=== PATIENT | female | born 1980 | race Caucasian/White ===

== ENCOUNTER 2018-05-29 00:16 | Inpatient (IN) | payer BC ==
[~2018-05-29] VITALS: Ht 154.9 cm; Wt 45.4 kg
[2018-05-29] VITALS (8 sets, daily range): BP systolic 103–125; BP diastolic 60–78
[2018-05-29] MEDS ORDERED: Isovue-300 100ml vial INJ PRN (00:45)
[2018-05-29] MEDS ORDERED: Morphine Sulfate 4mg/ml Inj (IV USE ONLY) IVP ONE (00:45)
--- NOTE | 2018-05-29 00:47 | Emergency Room Report ---
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 And recommended CT imaging with IV contrast Patient reports that she last took her medicine 2 hours ago and has been doing well since then Denies any vomiting or diarrhea Denies any chest pain or shortness of breath She has passed gas however denies any bowel movement Allergies: Coded Allergies: SULFA (SULFONAMIDE ANTIBIOTICS) (Verified Allergy, Unknown, 05/29/18) Patient History Past Medical History: see triage record Pertinent Family History: none Last Menstrual Period: 2 weeks ago Reviewed Nursing Documentation: PMH: Agreed; PSxH: Agreed Review of Systems All Other Systems: negative except mentioned in HPI Physical Exam Vital Signs Date Time Temp Pulse Resp B/P (MAP) Pulse Ox O2 Delivery O2 Flow Rate FiO2 05/29/18 00:23 98.5 64 18 116/71 98 Room Air 98.4 Sp02 EP Interpretation: reviewed, normal General Appearance: well appearing Head: normocephalic, atraumatic Eyes: bilateral eye PERRL, bilateral eye EOMI ENT: hearing grossly normal, normal pharynx Neck: supple Respiratory: lungs clear, normal breath sounds Cardiovascular #1: regular rate, rhythm, no edema Gastrointestinal: normal bowel sounds, non tender - However patient reports that subjectively when she was having discomfort it was just below the umbilical region bilateral lower abdomen, soft Genitourinary: no CVA tenderness Musculoskeletal: normal inspection, back normal Neurologic: alert, oriented x3 Psychiatric: judgement/insight normal Skin: normal color, no rash Lymphatic: no adenopathy Medical Decision Making Diagnostic Impression: Primary Impression: Intractable pain Additional Impression: Status post embolization of uterine artery ER Course given the exam and history multiple differentials considered. patient had pain requiring IV pain medicine Dr. Childress requesting CT with IV contrast blood work is appropriate ct did not show any acute disease and pt admitted for further care Labs Test 05/29/18 00:30 05/29/18 00:40 Urine Color Pale yellow Urine Appearance Clear Urine pH 6 (4.5-8.0) Urine Specific [place] 1.005 (1.005-1.035) Urine Protein Negative (NEGATIVE) Urine Glucose (UA) Negative (NEGATIVE) Urine Ketones Negative (NEGATIVE) Urine Occult Blood 3+ (NEGATIVE) Urine Nitrite Negative (NEGATIVE) Urine Bilirubin Negative (NEGATIVE) Urine Urobilinogen Normal MG/DL (0.0-1.0) Urine Leukocyte Esterase 1+ (NEGATIVE) Urine RBC 2-4 /HPF (0 - 2) Urine WBC 2-4 /HPF (0 - 2) Urine Squamous Epithelial Cells Many /LPF (NONE/OCC) Urine Bacteria Few /HPF (NONE) White Blood Count 6.3 K/UL (4.8-10.8) Red Blood Count 3.38 M/UL (4.20-5.40) Hemoglobin 12.3 G/DL (12.0-16.0) Hematocrit 34.0 % (37.0-47.0) Mean Corpuscular Volume 101 FL (80-99) Mean Corpuscular Hemoglobin 36.3 PG (27.0-31.0) Mean Corpuscular Hemoglobin Concent 36.1 G/DL (32.0-36.0) Red Cell Distribution Width 9.3 % (11.6-14.8) Platelet Count 176 K/UL (150-450) Mean Platelet Volume 6.1 FL (6.5-10.1) Neutrophils (%) (Auto) 64.9 % (45.0-75.0) Lymphocytes (%) (Auto) 24.3 % (20.0-45.0) Monocytes (%) (Auto) 8.8 % (1.0-10.0) Eosinophils (%) (Auto) 1.0 % (0.0-3.0) Basophils (%) (Auto) 0.9 % (0.0-2.0) Sodium Level 136 MMOL/L (136-145) Potassium Level 3.6 MMOL/L (3.5-5.1) Chloride Level 104 MMOL/L (98-107) Carbon Dioxide Level 30 MMOL/L (21-32) Anion Gap 2 mmol/L (5-15) Blood Urea Nitrogen 5 mg/dL (7-18) Creatinine 0.8 MG/DL (0.55-1.30) Estimat Glomerular Filtration Rate > 60 mL/min (>60) Glucose Level 117 MG/DL (74-106) Calcium Level 8.8 MG/DL (8.5-10.1) Total Bilirubin 0.3 MG/DL (0.2-1.0) Aspartate Amino Transf (AST/SGOT) 18 U/L (15-37) Alanine Aminotransferase (ALT/SGPT) 18 U/L (12-78) Alkaline Phosphatase 39 U/L (46-116) Total Protein 6.3 G/DL (6.4-8.2) Albumin 3.5 G/DL (3.4-5.0) Globulin 2.8 g/dL Albumin/Globulin Ratio 1.2 (1.0-2.7) Lipase 90 U/L (73-393) CT/MRI/US Diagnostic Results CT/MRI/US Diagnostic Results : Impression ct abd/pelvis: uterine fibroid , no acute disease Last Vital Signs Date Time Temp Pulse Resp B/P (MAP) Pulse Ox O2 Delivery O2 Flow Rate FiO2 05/29/18 00:23 98.5 64 18 116/71 98 Room Air 98.4 Status: improved Disposition: ADMITTED INPATIENT Condition: Serious Ciera Maldonado DO May 29, 2018 00:47
[2018-05-29 00:50] LABS: APPEARANCE,URINE CLEAR; BILIRUBIN, URINE NEGATIVE (NEGATIVE); COLOR,URINE PALE YELLOW; GLUCOSE, URINE (UA) NEGATIVE (NEGATIVE); KETONES,URINE NEGATIVE (NEGATIVE); LEUKOCYTE ESTERASE ,URINE 1+ (NEGATIVE); NITRITE,URINE NEGATIVE (NEGATIVE); PH,URINE 6 (4.5-8.0); PROTEIN,URINE NEGATIVE (NEGATIVE); UROBILINOGEN,URINE NORMAL MG/DL (0.0-1.0)
[2018-05-29 01:27] LABS: BASOPHILS % (AUTO) 0.9 % (0.0-2.0); HEMOGLOBIN 12.3 G/DL (12.0-16.0); LYMPHOCYTES % (AUTO) 24.3 % (20.0-45.0); MEAN CORPUSCULAR VOLUME 101 FL (80-99); MONOCYTES % (AUTO) 8.8 % (1.0-10.0); NEUTROPHILS % (AUTO) 64.9 % (45.0-75.0); PLATELET COUNT 176 K/UL (150-450); RED BLOOD COUNT 3.38 M/UL (4.20-5.40); RED CELL DISTRIBUTION WIDTH 9.3 % (11.6-14.8); WHITE BLOOD COUNT 6.3 K/UL (4.8-10.8)
[2018-05-29 01:31] LABS: ANION GAP 2 mmol/L (5-15); BLOOD UREA NITROGEN 5 mg/dL (7-18); CALCIUM 8.8 MG/DL (8.5-10.1); CARBON DIOXIDE 30 MMOL/L (21-32); CHLORIDE 104 MMOL/L (98-107); CREATININE 0.8 MG/DL (0.55-1.30); POTASSIUM 3.6 MMOL/L (3.5-5.1); SODIUM 136 MMOL/L (136-145)
[2018-05-29 01:36] LABS: ALANINE AMINOTRANSFERASE 18 U/L (12-78); ALBUMIN 3.5 G/DL (3.4-5.0); ALBUMIN/GLOBULIN RATIO 1.2 (1.0-2.7); ALKALINE PHOSPHATASE 39 U/L (46-116); ASPARTATE AMINO TRANSFERASE 18 U/L (15-37); BILIRUBIN,TOTAL 0.3 MG/DL (0.2-1.0)
[2018-05-29] MEDS ORDERED: Morphine Sulfate 4mg/ml Inj (IV USE ONLY) ONE (02:47)
--- NOTE | 2018-05-29 02:50 | Diagnostic Imaging Report ---
EXAM: CT Abdomen and Pelvis With Intravenous Contrast CLINICAL HISTORY: ABD PAIN TECHNIQUE: Axial computed tomography images of the abdomen and pelvis with intravenous contrast. CTDI is 0.15, 9.74 mGy and DLP is 456 mGy-cm. One or more of the following dose reduction techniques were used: automated exposure control, adjustment of the mA and/or kV according to patient size, use of iterative reconstruction technique. COMPARISON: No relevant prior studies available. FINDINGS: Lung bases: Unremarkable. No mass. No consolidation. Heart: Trace pericardial effusion. ABDOMEN: Liver: Periportal edema likely secondary to IV hydration. Gallbladder and bile ducts: Unremarkable. Pancreas: Unremarkable. Spleen: Unremarkable. Adrenals: Unremarkable. Kidneys and ureters: Unremarkable. Stomach and bowel: Unremarkable. PELVIS: Appendix: Appendix is unremarkable. Bladder: Unremarkable. Reproductive: IUD noted within the endometrium. Large presumed fibroid within the anterior uterine corpus/fundus. Prominent follicles within the right ovary. ABDOMEN and PELVIS: Intraperitoneal space: Trace free fluid in the pelvis. Bones/joints: No acute osseous abnormality. No dislocation. Soft tissues: Fat-containing umbilical hernia. Vasculature: Unremarkable. No abdominal aortic aneurysm. Lymph nodes: Unremarkable. IMPRESSION: 1. IUD noted within the endometrium. 2. Large presumed fibroid within the anterior uterine corpus/fundus.
[2018-05-29] MEDS ORDERED: Zolpidem 5mg tab ORAL PRN (03:45)
[2018-05-29] MEDS ORDERED: DiphenhydrAMINE 50mg/ml Inj IVP PRN (03:45)
[2018-05-29] MEDS: D5 1/2NS 1,000 ML IV SCH ×3 (04:22→23:41)
[2018-05-29] MEDS: HYDROmorphone 1mg/ml Carpuject IVP PRN ×6 (05:26→21:39)
[2018-05-29] MEDS: ceFAZolin sod 1 GM in D5W 55 ML IVPB SCH ×3 (05:33→22:32)
[2018-05-29 08:05] LABS: BASOPHILS % (AUTO) 0.3 % (0.0-2.0); EOSINOPHILS % (AUTO) 1.6 % (0.0-3.0); HEMATOCRIT 31.4 % (37.0-47.0); HEMOGLOBIN 10.9 G/DL (12.0-16.0); LYMPHOCYTES % (AUTO) 26.2 % (20.0-45.0); MEAN CORPUSCULAR VOLUME 101 FL (80-99); MONOCYTES % (AUTO) 7.9 % (1.0-10.0); NEUTROPHILS % (AUTO) 64.1 % (45.0-75.0); PLATELET COUNT 162 K/UL (150-450); RED BLOOD COUNT 3.11 M/UL (4.20-5.40); RED CELL DISTRIBUTION WIDTH 9.5 % (11.6-14.8); WHITE BLOOD COUNT 5.5 K/UL (4.8-10.8)
[2018-05-29 08:28] LABS: ALANINE AMINOTRANSFERASE 17 U/L (12-78); ALBUMIN/GLOBULIN RATIO 1.2 (1.0-2.7); ALKALINE PHOSPHATASE 33 U/L (46-116); ANION GAP 6 mmol/L (5-15); ASPARTATE AMINO TRANSFERASE 18 U/L (15-37); BILIRUBIN,TOTAL 0.3 MG/DL (0.2-1.0); BLOOD UREA NITROGEN 4 mg/dL (7-18); CALCIUM 8.2 MG/DL (8.5-10.1); CARBON DIOXIDE 28 MMOL/L (21-32); CHLORIDE 103 MMOL/L (98-107); CREATININE 0.7 MG/DL (0.55-1.30); POTASSIUM 3.5 MMOL/L (3.5-5.1); SODIUM 137 MMOL/L (136-145)
[2018-05-29] MEDS ORDERED: LORazepam 1mg tab SL PRN (08:48)
--- NOTE | 2018-05-29 13:13 | General Surgery Progress Note ---
General Surgery-Progress Note Subjective Day of Surgery: 05 27 18 Procedure Performed uterine artery embolization Chief Complaint: uncontrolled pain Symptoms: improved, tolerating diet, passing flatus Objective Last 24 Hour Vital Signs Date Time Temp Pulse Resp B/P (MAP) Pulse Ox O2 Delivery O2 Flow Rate FiO2 05/29/18 12:43 97.6 05/29/18 12:00 97.6 58 18 117/60 (79) 98 97.6 05/29/18 09:08 97.5 05/29/18 09:00 Room Air 05/29/18 08:38 97.5 05/29/18 08:00 97.5 66 18 103/63 (76) 96 97.5 05/29/18 03:55 Room Air 05/29/18 03:20 97.5 55 18 117/65 (82) 97.5 05/29/18 03:12 98.0 05/29/18 03:10 98.0 76 16 109/67 99 Room Air 98.0 05/29/18 03:08 98.0 76 16 109/67 99 Room Air 05/29/18 02:25 98.5 78 18 109/67 99 Room Air 98.5 05/29/18 00:58 98.4 76 18 118/78 98 Room Air 98.4 05/29/18 00:23 98.5 64 18 116/71 98 Room Air 98.4 I&O Intake and Output 05/28/18 05/29/18 19:00 07:00 Intake Total 1455 ml Balance 1455 ml Intake Oral 100 ml IV Total 1355 ml # Voids 1 Dressing: dry Wound: clean Drains: none Cardiovascular: RSR Respiratory: clear Abdomen: soft, flat, scaphoid, tenderness, present bowel sounds Extremities: no edema, no tenderness, no cyanosis Laboratory Tests Test 05/29/18 00:30 05/29/18 00:40 05/29/18 08:00 Urine Color Pale yellow Urine Appearance Clear Urine pH 6 (4.5-8.0) Urine Specific [place] 1.005 (1.005-1.035) Urine Protein Negative (NEGATIVE) Urine Glucose (UA) Negative (NEGATIVE) Urine Ketones Negative (NEGATIVE) Urine Occult Blood 3+ (NEGATIVE) H Urine Nitrite Negative (NEGATIVE) Urine Bilirubin Negative (NEGATIVE) Urine Urobilinogen Normal MG/DL (0.0-1.0) Urine Leukocyte Esterase 1+ (NEGATIVE) H Urine RBC 2-4 /HPF (0 - 2) H Urine WBC 2-4 /HPF (0 - 2) Urine Squamous Epithelial Cells Many /LPF (NONE/OCC) H Urine Bacteria Few /HPF (NONE) White Blood Count 6.3 K/UL (4.8-10.8) 5.5 K/UL (4.8-10.8) Red Blood Count 3.38 M/UL (4.20-5.40) L 3.11 M/UL (4.20-5.40) L Hemoglobin 12.3 G/DL (12.0-16.0) 10.9 G/DL (12.0-16.0) L Hematocrit 34.0 % (37.0-47.0) L 31.4 % (37.0-47.0) L Mean Corpuscular Volume 101 FL (80-99) H 101 FL (80-99) H Mean Corpuscular Hemoglobin 36.3 PG (27.0-31.0) H 35.2 PG (27.0-31.0) H Mean Corpuscular Hemoglobin Concent 36.1 G/DL (32.0-36.0) H 34.8 G/DL (32.0-36.0) Red Cell Distribution Width 9.3 % (11.6-14.8) L 9.5 % (11.6-14.8) L Platelet Count 176 K/UL (150-450) 162 K/UL (150-450) Mean Platelet Volume 6.1 FL (6.5-10.1) L 5.8 FL (6.5-10.1) L Neutrophils (%) (Auto) 64.9 % (45.0-75.0) 64.1 % (45.0-75.0) Lymphocytes (%) (Auto) 24.3 % (20.0-45.0) 26.2 % (20.0-45.0) Monocytes (%) (Auto) 8.8 % (1.0-10.0) 7.9 % (1.0-10.0) Eosinophils (%) (Auto) 1.0 % (0.0-3.0) 1.6 % (0.0-3.0) Basophils (%) (Auto) 0.9 % (0.0-2.0) 0.3 % (0.0-2.0) Sodium Level 136 MMOL/L (136-145) 137 MMOL/L (136-145) Potassium Level 3.6 MMOL/L (3.5-5.1) 3.5 MMOL/L (3.5-5.1) Chloride Level 104 MMOL/L (98-107) 103 MMOL/L (98-107) Carbon Dioxide Level 30 MMOL/L (21-32) 28 MMOL/L (21-32) Anion Gap 2 mmol/L (5-15) L 6 mmol/L (5-15) Blood Urea Nitrogen 5 mg/dL (7-18) L 4 mg/dL (7-18) L Creatinine 0.8 MG/DL (0.55-1.30) 0.7 MG/DL (0.55-1.30) Estimat Glomerular Filtration Rate > 60 mL/min (>60) > 60 mL/min (>60) Glucose Level 117 MG/DL (74-106) H 149 MG/DL (74-106) H Calcium Level 8.8 MG/DL (8.5-10.1) 8.2 MG/DL (8.5-10.1) L Total Bilirubin 0.3 MG/DL (0.2-1.0) 0.3 MG/DL (0.2-1.0) Aspartate Amino Transf (AST/SGOT) 18 U/L (15-37) 18 U/L (15-37) Alanine Aminotransferase (ALT/SGPT) 18 U/L (12-78) 17 U/L (12-78) Alkaline Phosphatase 39 U/L (46-116) L 33 U/L (46-116) L Total Protein 6.3 G/DL (6.4-8.2) L 5.5 G/DL (6.4-8.2) L Albumin 3.5 G/DL (3.4-5.0) 3.0 G/DL (3.4-5.0) L Globulin 2.8 g/dL 2.5 g/dL Albumin/Globulin Ratio 1.2 (1.0-2.7) 1.2 (1.0-2.7) Lipase 90 U/L (73-393) Imaging CT abdomen, pelvis reviewed, no acute findings. Assessment Post-op Diagnosis pain management improving today Plan Problems: (1) Status post embolization of uterine artery Additional Comments GI consult, ambulate, attempt oral pain management tomorrow. Rhys Regalado MD May 29, 2018 13:13
[2018-05-29] MEDS ORDERED: Heplock Flush 100 units/ml 3 ml syr INJ PRN (14:00)
[2018-05-29 14:22] LABS: % IRON SATURATION 21 % (15-50); IRON 47 ug/dL (50-175); TOTAL IRON BINDING CAPACITY 226 ug/dL (250-450)
[2018-05-29 14:35] LABS: FERRITIN 268 NG/ML (8-388)
[2018-05-29] MEDS ORDERED: Sorbitol Solution UD 30ml ORAL PRN (16:45)
[2018-05-29] MEDS ORDERED: Sorbitol Solution UD 30ml ORAL SCH (17:30)
[2018-05-29] MEDS ORDERED: Iron Sucrose 100 MG in NS 55 ML IV SCH (21:00)
[2018-05-30] VITALS: BP 126/69
[2018-05-30] MEDS: HYDROmorphone 1mg/ml Carpuject IVP PRN ×6 (00:50→20:12)
--- NOTE | 2018-05-30 01:15 | Consultation ---
DATE OF CONSULTATION: 05/29/2018 "NOTE: POOR AUDIO QUALITY" GASTROENTEROLOGY CONSULTATION CONSULTING PHYSICIAN: Josue Menchaca M.D. CHIEF COMPLAINT: I was asked to see this patient by Dr. Rhys Regalado for evaluation of constipation. HISTORY OF PRESENT ILLNESS: The patient is a 38-year-old white woman with a history of large fibroid, who underwent uterine artery embolization two days ago. Her last bowel movement was about three days ago. She normally has two to three bowel movements a day, which is soft. Since the last two days, she has had significant pelvic pain and has been on narcotics at home. She has had some nausea, but no vomiting. She has not had a bowel movement since uterine artery embolization. In the past; however, she has had some abdominal complaints with vague discomfort. She has been seen by Gastroenterology in the past and has been told she has some form of irritable bowel syndrome. She reduced her weekly intake and she got better. She had endoscopy and colonoscopy about seven years ago, which was unremarkable. PAST MEDICAL HISTORY: Otherwise negative. FAMILY HISTORY: Noncontributory. SOCIAL HISTORY: The patient is single. She has no children. PAST SURGICAL HISTORY: History of uterine polyp removal and history of right arm fracture. MEDICATIONS AT HOME: Narcotics none. ALLERGIES: Sulfa. REVIEW OF SYSTEMS: Otherwise negative. PHYSICAL EXAMINATION: GENERAL: Pleasant, thin white woman, seen in her room. HEENT: Normocephalic and atraumatic. Sclerae anicteric. Oropharynx clear. NECK: Supple. CHEST: Clear to auscultation. CARDIOVASCULAR: Revealed a regular rate. ABDOMEN: Soft with some tenderness in the pelvic area. EXTREMITIES: Reveal no edema. LABORATORY DATA: Noted. ASSESSMENT: This patient presents with pain in the abdomen and pelvic area subsequent to a procedure, which was treated with narcotics. She is likely constipated as a secondary effect. The patient is on laxatives on a daily basis until her bowel function has resumed. In addition, the pain medications should be gradually withdrawn. The patient elected to agree with oral medications tonight, but rectal medications will also be given tomorrow if initial inducing the bowel movement was not successful. RECOMMENDATIONS: Per above discussion and per orders written in the chart. Thank you for asking me to participate in the care of this patient. Josue Menchaca M.D. DR: JANE JOB#: [id number] CC: WENDIE
[2018-05-30 04:00] VITALS: BP 126/61
[2018-05-30] MEDS: ceFAZolin sod 1 GM in D5W 55 ML IVPB SCH ×3 (06:00→21:59)
[2018-05-30 08:00] VITALS: BP 114/75
[2018-05-30] MEDS: D5 1/2NS 1,000 ML IV SCH ×2 (10:06→21:59)
[2018-05-30] MEDS: HYDROmorphone 2mg tab ORAL PRN ×2 (10:39→13:39)
--- NOTE | 2018-05-30 11:27 | GI Progress Note ---
Assessment/Plan Problems: (1) Anemia ICD Codes: D64.9 - Anemia, unspecified SNOMED: 727743045 (2) Status post embolization of uterine artery ICD Codes: Z98.890 - Other specified postprocedural states SNOMED: 464331518 (3) Intractable pain ICD Codes: R52 - Pain, unspecified SNOMED: 88580410 (4) Pain ICD Codes: R52 - Pain, unspecified SNOMED: 78087459 Status: unchanged Status Narrative Discussed with Dr. Aquino. Assessment/Plan OIC vs diarrhea symptomatic treatment adv diet per surgery titrate bowel regime anemia work up OB stool r/o GI bleed monitor H&H, prn transfusions bowel regime ppi fu labs, celiac panel, folate/MVI The patient was seen and examined at bedside and all new and available data was reviewed in the patients chart. I agree with the above findings, impression and plan. (Patient seen earlier today. Signature stamp does not reflect patient encounter time.). - Luca Aquino MD Subjective Subjective has diarrhea status she does not taken gluten abdominal pain Objective Last 24 Hour Vital Signs Date Time Temp Pulse Resp B/P (MAP) Pulse Ox O2 Delivery O2 Flow Rate FiO2 05/30/18 10:39 98.0 05/30/18 08:14 98.0 05/30/18 08:06 Room Air 05/30/18 08:00 97.9 70 22 114/75 (88) 100 97.9 05/30/18 07:44 98.0 05/30/18 04:00 98.0 82 18 126/61 (82) 97 98.0 05/30/18 00:00 99.4 64 18 126/69 (88) 95 99.4 05/29/18 21:00 Room Air 05/29/18 20:00 98.5 72 17 108/72 (84) 95 98.5 05/29/18 19:12 98.3 05/29/18 18:42 98.3 05/29/18 16:00 98.3 66 16 125/60 (81) 97 98.3 05/29/18 15:15 97.6 05/29/18 13:13 97.6 05/29/18 12:43 97.6 05/29/18 12:00 97.6 58 18 117/60 (79) 98 97.6 Intake and Output 05/29/18 05/30/18 19:00 07:00 Intake Total 1470 ml 1950 ml Balance 1470 ml 1950 ml Intake Oral 720 ml 800 ml IV Total 750 ml 1150 ml # Voids 4 2 Height (Feet): 5 Height (Inches): 1.00 Weight (Pounds): 100 General Appearance: WD/WN, no apparent distress, alert, thin Cardiovascular: normal rate Respiratory/Chest: normal breath sounds, no respiratory distress Abdominal Exam: normal bowel sounds, non tender, soft Extremities: normal range of motion, non-tender Fernanda Schwarz NP May 30, 2018 11:27
[2018-05-30 12:00] VITALS: BP 107/63
[2018-05-30 16:00] VITALS: BP 121/66
[2018-05-30] MEDS: HYDROmorphone 4mg tab ORAL PRN ×2 (17:44→23:03)
[2018-05-30] MEDS ORDERED: D5 1/2NS 1000ml IV ONE (19:42)
[2018-05-30 20:00] VITALS: BP 119/81
[2018-05-31] VITALS: BP 103/60
[2018-05-31] MEDS: HYDROmorphone 1mg/ml Carpuject IVP PRN ×4 (01:20→15:11)
[2018-05-31 05:00] VITALS: BP 105/71
[2018-05-31] MEDS: ceFAZolin sod 1 GM in D5W 55 ML IVPB SCH ×3 (06:03→21:12)
[2018-05-31] MEDS: D5 1/2NS 1,000 ML IV SCH (06:03)
[2018-05-31] MEDS: HYDROmorphone 4mg tab ORAL PRN (06:08)
[2018-05-31 06:40] LABS: BASOPHILS % (AUTO) 0.3 % (0.0-2.0); EOSINOPHILS % (AUTO) 0.9 % (0.0-3.0); HEMATOCRIT 31.3 % (37.0-47.0); HEMOGLOBIN 10.9 G/DL (12.0-16.0); LYMPHOCYTES % (AUTO) 14.8 % (20.0-45.0); MEAN CORPUSCULAR VOLUME 101 FL (80-99); MONOCYTES % (AUTO) 10.5 % (1.0-10.0); NEUTROPHILS % (AUTO) 73.5 % (45.0-75.0); PLATELET COUNT 143 K/UL (150-450); RED CELL DISTRIBUTION WIDTH 9.4 % (11.6-14.8)
[2018-05-31 07:06] LABS: ANION GAP 4 mmol/L (5-15); BLOOD UREA NITROGEN 1 mg/dL (7-18); CALCIUM 8.3 MG/DL (8.5-10.1); CARBON DIOXIDE 30 MMOL/L (21-32); CHLORIDE 103 MMOL/L (98-107); CREATININE 0.5 MG/DL (0.55-1.30); POTASSIUM 3.1 MMOL/L (3.5-5.1); SODIUM 137 MMOL/L (136-145)
[2018-05-31 08:00] VITALS: BP 116/74
[2018-05-31] MEDS: D5 1/2NS w/KCl 30mEq 1000ml 1,000 ML IV SCH ×2 (09:39→19:11)
--- NOTE | 2018-05-31 09:54 | General Surgery Progress Note ---
General Surgery-Progress Note Subjective Procedure Performed uterine artery embolization Symptoms: pain same Objective Last 24 Hour Vital Signs Date Time Temp Pulse Resp B/P (MAP) Pulse Ox O2 Delivery O2 Flow Rate FiO2 05/31/18 08:00 98.7 79 19 116/74 (88) 98 98.7 05/31/18 05:00 97.9 74 18 105/71 (82) 94 97.9 05/31/18 00:00 98.2 76 18 103/60 (74) 98 98.2 05/30/18 21:00 Room Air 05/30/18 20:00 98.4 83 18 119/81 (94) 100 98.4 05/30/18 18:43 98.6 05/30/18 17:44 98.6 05/30/18 16:41 98.6 05/30/18 16:11 98.6 05/30/18 16:00 99.3 81 22 121/66 (84) 96 99.3 05/30/18 14:39 98.6 05/30/18 13:39 98.6 05/30/18 12:00 05/30/18 12:00 98.6 69 19 107/63 (78) 99 98.6 05/30/18 10:39 98.0 I&O Intake and Output 05/30/18 05/31/18 19:00 07:00 Intake Total 1865 ml 1805 ml Balance 1865 ml 1805 ml Intake Oral 960 ml 800 ml IV Total 905 ml 1005 ml # Voids 4 2 Drains: none Cardiovascular: RSR Respiratory: clear Abdomen: tenderness, present bowel sounds Laboratory Tests Test 05/31/18 05:10 White Blood Count 8.0 K/UL (4.8-10.8) Red Blood Count 3.10 M/UL (4.20-5.40) L Hemoglobin 10.9 G/DL (12.0-16.0) L Hematocrit 31.3 % (37.0-47.0) L Mean Corpuscular Volume 101 FL (80-99) H Mean Corpuscular Hemoglobin 35.2 PG (27.0-31.0) H Mean Corpuscular Hemoglobin Concent 34.9 G/DL (32.0-36.0) Red Cell Distribution Width 9.4 % (11.6-14.8) L Platelet Count 143 K/UL (150-450) L Mean Platelet Volume 6.0 FL (6.5-10.1) L Neutrophils (%) (Auto) 73.5 % (45.0-75.0) Lymphocytes (%) (Auto) 14.8 % (20.0-45.0) L Monocytes (%) (Auto) 10.5 % (1.0-10.0) H Eosinophils (%) (Auto) 0.9 % (0.0-3.0) Basophils (%) (Auto) 0.3 % (0.0-2.0) Sodium Level 137 MMOL/L (136-145) Potassium Level 3.1 MMOL/L (3.5-5.1) L Chloride Level 103 MMOL/L (98-107) Carbon Dioxide Level 30 MMOL/L (21-32) Anion Gap 4 mmol/L (5-15) L Blood Urea Nitrogen 1 mg/dL (7-18) L Creatinine 0.5 MG/DL (0.55-1.30) L Estimat Glomerular Filtration Rate > 60 mL/min (>60) Glucose Level 105 MG/DL (74-106) Calcium Level 8.3 MG/DL (8.5-10.1) L Vitamin B12 Level 904 PG/ML (193-986) Folate 18.6 NG/ML (8.6-58.9) Thyroid Stimulating Hormone (TSH) 1.967 uiU/mL (0.358-3.740) Free Thyroxine 0.87 NG/DL (0.76-1.46) Tissue Transglutaminase IgG Ab Pending Assessment Post-op Diagnosis pain management no relief with oral dilaudid Plan Problems: (1) Status post embolization of uterine artery Additional Comments attempt percocet 10/325 orally, consult with Rhys Rodrigues MD May 31, 2018 09:54
[2018-05-31 12:00] VITALS: BP 91/58
--- NOTE | 2018-05-31 13:48 | GI Progress Note ---
Assessment/Plan Problems: (1) Anemia ICD Codes: D64.9 - Anemia, unspecified SNOMED: 596837354 (2) Status post embolization of uterine artery ICD Codes: Z98.890 - Other specified postprocedural states SNOMED: 221038658 (3) Intractable pain ICD Codes: R52 - Pain, unspecified SNOMED: 11176781 (4) Pain ICD Codes: R52 - Pain, unspecified SNOMED: 05417991 Status: stable, progressing Status Narrative Discussed with Dr. Aquino. Assessment/Plan OIC vs diarrhea symptomatic treatment FLD today, adv tomorrow if tolerated simethicone prn titrate bowel regime >> start stool softeners OB stool r/o GI bleed monitor H&H, prn transfusions bowel regime ppi fu labs, celiac panel, folate/MVI The patient was seen and examined at bedside and all new and available data was reviewed in the patients chart. I agree with the above findings, impression and plan. (Patient seen earlier today. Signature stamp does not reflect patient encounter time.). - Luca Aquino MD Subjective Subjective has abdominal bloating, constipation status she does not taken gluten abdominal pain has improved Objective Last 24 Hour Vital Signs Date Time Temp Pulse Resp B/P (MAP) Pulse Ox O2 Delivery O2 Flow Rate FiO2 05/31/18 12:00 98.4 75 17 91/58 (69) 96 98.4 05/31/18 09:00 Room Air 05/31/18 08:00 98.7 79 19 116/74 (88) 98 98.7 05/31/18 05:00 97.9 74 18 105/71 (82) 94 97.9 05/31/18 00:00 98.2 76 18 103/60 (74) 98 98.2 05/30/18 21:00 Room Air 05/30/18 20:00 98.4 83 18 119/81 (94) 100 98.4 05/30/18 18:43 98.6 05/30/18 17:44 98.6 05/30/18 16:41 98.6 05/30/18 16:11 98.6 05/30/18 16:00 99.3 81 22 121/66 (84) 96 99.3 05/30/18 14:39 98.6 Intake and Output 05/30/18 05/31/18 19:00 07:00 Intake Total 1865 ml 1805 ml Balance 1865 ml 1805 ml Intake Oral 960 ml 800 ml IV Total 905 ml 1005 ml # Voids 4 2 Laboratory Tests Test 05/31/18 05:10 White Blood Count 8.0 K/UL (4.8-10.8) Red Blood Count 3.10 M/UL (4.20-5.40) L Hemoglobin 10.9 G/DL (12.0-16.0) L Hematocrit 31.3 % (37.0-47.0) L Mean Corpuscular Volume 101 FL (80-99) H Mean Corpuscular Hemoglobin 35.2 PG (27.0-31.0) H Mean Corpuscular Hemoglobin Concent 34.9 G/DL (32.0-36.0) Red Cell Distribution Width 9.4 % (11.6-14.8) L Platelet Count 143 K/UL (150-450) L Mean Platelet Volume 6.0 FL (6.5-10.1) L Neutrophils (%) (Auto) 73.5 % (45.0-75.0) Lymphocytes (%) (Auto) 14.8 % (20.0-45.0) L Monocytes (%) (Auto) 10.5 % (1.0-10.0) H Eosinophils (%) (Auto) 0.9 % (0.0-3.0) Basophils (%) (Auto) 0.3 % (0.0-2.0) Sodium Level 137 MMOL/L (136-145) Potassium Level 3.1 MMOL/L (3.5-5.1) L Chloride Level 103 MMOL/L (98-107) Carbon Dioxide Level 30 MMOL/L (21-32) Anion Gap 4 mmol/L (5-15) L Blood Urea Nitrogen 1 mg/dL (7-18) L Creatinine 0.5 MG/DL (0.55-1.30) L Estimat Glomerular Filtration Rate > 60 mL/min (>60) Glucose Level 105 MG/DL (74-106) Calcium Level 8.3 MG/DL (8.5-10.1) L Vitamin B12 Level 904 PG/ML (193-986) Folate 18.6 NG/ML (8.6-58.9) Thyroid Stimulating Hormone (TSH) 1.967 uiU/mL (0.358-3.740) Free Thyroxine 0.87 NG/DL (0.76-1.46) Tissue Transglutaminase IgG Ab Pending Height (Feet): 5 Height (Inches): 1.00 Weight (Pounds): 100 General Appearance: WD/WN, no apparent distress, alert, thin Cardiovascular: normal rate Respiratory/Chest: normal breath sounds, no respiratory distress Abdominal Exam: normal bowel sounds, non tender, soft Extremities: normal range of motion, non-tender Fernanda Schwarz NP May 31, 2018 13:48
[2018-05-31] MEDS ORDERED: Simethicone 80mg tab ORAL PRN (14:00)
[2018-05-31] MEDS ORDERED: Simethicone 80mg tab ORAL SCH (14:00)
--- NOTE | 2018-05-31 15:36 | Consultation ---
Consult Note Consult Note Internal Med Consult pain s/o UAE chr anxiety hypokalemia see orders Tino Dubon MD May 31, 2018 15:36
[2018-05-31 16:00] VITALS: BP 112/72
[2018-05-31] MEDS: Docusate 100mg cap ORAL SCH (17:46)
[2018-05-31 20:23] VITALS: BP 99/59
--- NOTE | 2018-05-31 21:00 | Consultation ---
DATE OF CONSULTATION: 05/31/2018 INTERNAL MEDICINE CONSULTATION CHIEF COMPLAINT: Abdominal pain. HISTORY OF PRESENT ILLNESS: The patient is a 38-year-old woman, who comes to the hospital through the emergency department several days after having an uterine artery embolization procedure performed. The procedure was successful, but she had severe pain and was admitted for this reason. She had no bowel movement until laxatives were given. She is followed in the hospital now by Gastroenterology. Her pain seems to be somewhat better. She has had persistent difficulties titrating her pain regimen. She has some nausea, but no vomiting. She has no chest pain or shortness of breath. There are no cardiac problems. She does have problems with anxiety due to life issues. She reports that she had an argument with the nurse earlier during this hospital stay after a delay in receiving her pain medication. PAST MEDICAL HISTORY: Otherwise unremarkable. ALLERGIES: Sulfa. SOCIAL HISTORY: She used to smoke cigarettes and now inhales nicotine vapor. She drinks 2 to 4 glasses of wine per day. She does not use illicit drugs. REVIEW OF SYSTEMS: As noted above. She does have difficulty sleeping. PHYSICAL EXAMINATION: GENERAL: The patient is alert and responds appropriately. VITAL SIGNS: Stable. She is well developed and well nourished. HEENT: Head is normocephalic. NECK: No jugular vein distention. CHEST: Clear. CARDIAC: Rhythm is regular. ABDOMEN: Slightly distended. Soft and not significantly tender. The liver and spleen are not enlarged. There is no mass or ascites. EXTREMITIES: No clubbing, cyanosis, or edema. Mood seems calm and appropriate. IMAGING: Reviewed LABORATORY STUDIES: Reviewed. Her potassium is low and supplements were ordered. IMPRESSION: 1. Abdominal pain following uterine artery embolization. 2. Chronic anxiety with acute exacerbation. 3. Hypokalemia. PLAN: The patient was given supplement of potassium. Seroquel was ordered nightly. I will follow the patient closely with you. Cindi Dubon M.D. DR: BONITA JOB#: [id number] CC: Rhys Regalado M.D.; Fax#: [phone] CINDI DUBON M.D. ; FAX#: [phone]
[2018-06-01 00:14] VITALS: BP 103/62
[2018-06-01 03:59] VITALS: BP 94/60
[2018-06-01] MEDS: D5 1/2NS w/KCl 30mEq 1000ml 1,000 ML IV SCH (05:30)
[2018-06-01] MEDS: ceFAZolin sod 1 GM in D5W 55 ML IVPB SCH (05:40)
[2018-06-01 07:48] LABS: ANION GAP 5 mmol/L (5-15); BLOOD UREA NITROGEN 2 mg/dL (7-18); CALCIUM 8.7 MG/DL (8.5-10.1); CARBON DIOXIDE 31 MMOL/L (21-32); CHLORIDE 103 MMOL/L (98-107); CREATININE 0.7 MG/DL (0.55-1.30); POTASSIUM 4.1 MMOL/L (3.5-5.1); SODIUM 139 MMOL/L (136-145)
[2018-06-01 07:52] LABS: BASOPHILS % (AUTO) 0.4 % (0.0-2.0); EOSINOPHILS % (AUTO) 1.8 % (0.0-3.0); HEMATOCRIT 31.8 % (37.0-47.0); HEMOGLOBIN 11.2 G/DL (12.0-16.0); MEAN CORPUSCULAR VOLUME 102 FL (80-99); MONOCYTES % (AUTO) 10.3 % (1.0-10.0); NEUTROPHILS % (AUTO) 65.4 % (45.0-75.0); PLATELET COUNT 178 K/UL (150-450); RED BLOOD COUNT 3.13 M/UL (4.20-5.40); RED CELL DISTRIBUTION WIDTH 9.6 % (11.6-14.8); WHITE BLOOD COUNT 6.2 K/UL (4.8-10.8)
[2018-06-01 08:00] VITALS: BP 89/50
[2018-06-01] MEDS: Docusate 100mg cap ORAL SCH (08:54)
--- NOTE | 2018-06-01 10:19 | GI Progress Note ---
Assessment/Plan Problems: (1) Anemia ICD Codes: D64.9 - Anemia, unspecified SNOMED: 091850407 (2) Status post embolization of uterine artery ICD Codes: Z98.890 - Other specified postprocedural states SNOMED: 643010230 (3) Intractable pain ICD Codes: R52 - Pain, unspecified SNOMED: 31677554 (4) Pain ICD Codes: R52 - Pain, unspecified SNOMED: 13073299 Status: stable Status Narrative Discussed with Dr. Aquino. Assessment/Plan Opioid induced constipation >> cont colace symptomatic treatment regular diet today simethicone prn OB stool r/o GI bleed monitor H&H, prn transfusions bowel regime ppi fu labs, celiac panel dc planning The patient was seen and examined at bedside and all new and available data was reviewed in the patients chart. I agree with the above findings, impression and plan. (Patient seen earlier today. Signature stamp does not reflect patient encounter time.). - Luca Aquino MD Subjective Subjective has abdominal bloating, constipation does not eat gluten abdominal pain has improved Objective Last 24 Hour Vital Signs Date Time Temp Pulse Resp B/P (MAP) Pulse Ox O2 Delivery O2 Flow Rate FiO2 06/01/18 09:55 97.9 06/01/18 09:00 Room Air 06/01/18 08:56 97.9 06/01/18 08:00 97.9 72 17 89/50 (63) 96 97.9 06/01/18 03:59 97.9 74 17 94/60 (71) 97 97.9 06/01/18 00:14 97.8 66 18 103/62 (76) 99 97.8 05/31/18 21:00 Room Air 05/31/18 20:23 98.1 71 19 99/59 (72) 100 98.1 05/31/18 16:00 97.6 71 20 112/72 (85) 100 97.6 05/31/18 12:00 98.4 75 17 91/58 (69) 96 98.4 Intake and Output 05/31/18 06/01/18 19:00 07:00 Intake Total 400 ml 2585 ml Output Total 0 ml Balance 400 ml 2585 ml Intake Oral 400 ml 1580 ml IV Total 1005 ml Output Stool Total 0 ml # Voids 5 5 Laboratory Tests Test 06/01/18 06:25 White Blood Count 6.2 K/UL (4.8-10.8) Red Blood Count 3.13 M/UL (4.20-5.40) L Hemoglobin 11.2 G/DL (12.0-16.0) L Hematocrit 31.8 % (37.0-47.0) L Mean Corpuscular Volume 102 FL (80-99) H Mean Corpuscular Hemoglobin 35.8 PG (27.0-31.0) H Mean Corpuscular Hemoglobin Concent 35.3 G/DL (32.0-36.0) Red Cell Distribution Width 9.6 % (11.6-14.8) L Platelet Count 178 K/UL (150-450) Mean Platelet Volume 6.0 FL (6.5-10.1) L Neutrophils (%) (Auto) 65.4 % (45.0-75.0) Lymphocytes (%) (Auto) 22.0 % (20.0-45.0) Monocytes (%) (Auto) 10.3 % (1.0-10.0) H Eosinophils (%) (Auto) 1.8 % (0.0-3.0) Basophils (%) (Auto) 0.4 % (0.0-2.0) Sodium Level 139 MMOL/L (136-145) Potassium Level 4.1 MMOL/L (3.5-5.1) Chloride Level 103 MMOL/L (98-107) Carbon Dioxide Level 31 MMOL/L (21-32) Anion Gap 5 mmol/L (5-15) Blood Urea Nitrogen 2 mg/dL (7-18) L Creatinine 0.7 MG/DL (0.55-1.30) Estimat Glomerular Filtration Rate > 60 mL/min (>60) Glucose Level 95 MG/DL (74-106) Calcium Level 8.7 MG/DL (8.5-10.1) Height (Feet): 5 Height (Inches): 1.00 Weight (Pounds): 100 General Appearance: WD/WN, no apparent distress, alert Cardiovascular: normal rate Respiratory/Chest: normal breath sounds, no respiratory distress Abdominal Exam: normal bowel sounds, non tender, soft Extremities: normal range of motion, non-tender Fernanda Schwarz [employer] Jun 01, 2018 10:19
--- NOTE | 2018-06-01 11:51 | General Surgery Progress Note ---
General Surgery-Progress Note Subjective Procedure Performed uterine artery embolization Symptoms: improved, tolerating diet, voiding well, passing flatus, BM Objective Last 24 Hour Vital Signs Date Time Temp Pulse Resp B/P (MAP) Pulse Ox O2 Delivery O2 Flow Rate FiO2 06/01/18 09:55 97.9 06/01/18 09:00 Room Air 06/01/18 08:56 97.9 06/01/18 08:00 97.9 72 17 89/50 (63) 96 97.9 06/01/18 03:59 97.9 74 17 94/60 (71) 97 97.9 06/01/18 00:14 97.8 66 18 103/62 (76) 99 97.8 05/31/18 21:00 Room Air 05/31/18 20:23 98.1 71 19 99/59 (72) 100 98.1 05/31/18 16:00 97.6 71 20 112/72 (85) 100 97.6 05/31/18 12:00 98.4 75 17 91/58 (69) 96 98.4 I&O Intake and Output 05/31/18 06/01/18 19:00 07:00 Intake Total 400 ml 2685 ml Output Total 0 ml Balance 400 ml 2685 ml Intake Oral 400 ml 1580 ml IV Total 1105 ml Output Stool Total 0 ml # Voids 5 5 Dressing: dry Wound: clean Drains: none Cardiovascular: RSR Respiratory: clear Abdomen: soft, flat, scaphoid, non-tender, present bowel sounds Extremities: no edema, no tenderness, no cyanosis Laboratory Tests Test 06/01/18 06:25 White Blood Count 6.2 K/UL (4.8-10.8) Red Blood Count 3.13 M/UL (4.20-5.40) L Hemoglobin 11.2 G/DL (12.0-16.0) L Hematocrit 31.8 % (37.0-47.0) L Mean Corpuscular Volume 102 FL (80-99) H Mean Corpuscular Hemoglobin 35.8 PG (27.0-31.0) H Mean Corpuscular Hemoglobin Concent 35.3 G/DL (32.0-36.0) Red Cell Distribution Width 9.6 % (11.6-14.8) L Platelet Count 178 K/UL (150-450) Mean Platelet Volume 6.0 FL (6.5-10.1) L Neutrophils (%) (Auto) 65.4 % (45.0-75.0) Lymphocytes (%) (Auto) 22.0 % (20.0-45.0) Monocytes (%) (Auto) 10.3 % (1.0-10.0) H Eosinophils (%) (Auto) 1.8 % (0.0-3.0) Basophils (%) (Auto) 0.4 % (0.0-2.0) Sodium Level 139 MMOL/L (136-145) Potassium Level 4.1 MMOL/L (3.5-5.1) Chloride Level 103 MMOL/L (98-107) Carbon Dioxide Level 31 MMOL/L (21-32) Anion Gap 5 mmol/L (5-15) Blood Urea Nitrogen 2 mg/dL (7-18) L Creatinine 0.7 MG/DL (0.55-1.30) Estimat Glomerular Filtration Rate > 60 mL/min (>60) Glucose Level 95 MG/DL (74-106) Calcium Level 8.7 MG/DL (8.5-10.1) Additional Comments stable Assessment Post-op Diagnosis pain management good control with percocet orally Plan Problems: (1) Status post embolization of uterine artery Additional Comments discharge home Rhys Regalado MD Jun 01, 2018 11:51
[2018-06-01] MEDS ORDERED: PERCOCET 10-321 EACH ORAL (11:55)
[2018-06-01 12:00] VITALS: BP 94/53
--- NOTE | 2018-06-01 20:57 | General Progress Note ---
Assessment/Plan Assessment/Plan 1. Abdominal pain following uterine artery embolization. 2. Chronic anxiety with acute exacerbation. 3. Hypokalemia. pain controlled with oral rx wants to take Seroquel after dc for anxiety sent rx to her pharmacy Subjective Constitutional: Reports: malaise, weakness Gastrointestinal/Abdominal: Reports: abdominal pain Allergies: Coded Allergies: SULFA (SULFONAMIDE ANTIBIOTICS) (Verified Allergy, Unknown, 05/29/18) Objective Last 24 Hour Vital Signs Date Time Temp Pulse Resp B/P (MAP) Pulse Ox O2 Delivery O2 Flow Rate FiO2 06/01/18 12:00 98.0 66 18 94/53 (67) 98 98.0 06/01/18 09:55 97.9 06/01/18 09:00 Room Air 06/01/18 08:56 97.9 06/01/18 08:00 97.9 72 17 89/50 (63) 96 97.9 06/01/18 03:59 97.9 74 17 94/60 (71) 97 97.9 06/01/18 00:14 97.8 66 18 103/62 (76) 99 97.8 05/31/18 21:00 Room Air Intake and Output 05/31/18 06/01/18 19:00 07:00 Intake Total 400 ml 2685 ml Output Total 0 ml Balance 400 ml 2685 ml Intake Oral 400 ml 1580 ml IV Total 1105 ml Output Stool Total 0 ml # Voids 5 5 Laboratory Tests 06/01/18 06:25: White Blood Count 6.2, Red Blood Count 3.13L, Hemoglobin 11.2L, Hematocrit 31.8L , Mean Corpuscular Volume 102H, Mean Corpuscular Hemoglobin 35.8H, Mean Corpuscular Hemoglobin Concent 35.3, Red Cell Distribution Width 9.6L, Platelet Count 178, Mean Platelet Volume 6.0L, Neutrophils (%) (Auto) 65.4, Lymphocytes ( %) (Auto) 22.0, Monocytes (%) (Auto) 10.3H, Eosinophils (%) (Auto) 1.8, Basophils (%) (Auto) 0.4, Sodium Level 139, Potassium Level 4.1, Chloride Level 103, Carbon Dioxide Level 31, Anion Gap 5, Blood Urea Nitrogen 2L, Creatinine 0.7, Estimat Glomerular Filtration Rate > 60, Glucose Level 95, Calcium Level 8.7 Height (Feet): 5 Height (Inches): 1.00 Weight (Pounds): 100 General Appearance: no apparent distress, alert Cardiovascular: normal rate Respiratory/Chest: lungs clear Abdomen: non tender, soft Tino Dubon MD Jun 01, 2018 20:57
--- NOTE | 2018-06-02 09:05 | Discharge Summary ---
Discharge Summary Discharge Summary _ DATE OF ADMISSION: 05/29/2018 DATE OF DISCHARGE: 06/01/2018 CONSULTANTS: Dr. Tino Aquino [facility] COURSE: Patient is a 38-year-old female, who came to the emergency department status post uterine artery embolization performed 2 days prior. She had a successful procedure, however, continued to have discomfort on the lower abdomen despite taking increased number of Percocet. She normally has 2-3 bowel movements per day, however, since after surgery was passing gas, no BM. She was then advised to go to ER for further evaluation. On arrival to ED, she had stable vital signs. She had CT of the abdomen and pelvis that showed an IUD within the endometrium; large fibroid within the anterior uterine corpus/fundus. There was no acute findings seen. Because of severe pain and change in bowel habits, she was admitted for further evaluation. She was given IV hydration. She was seen by GI. She was started on clear liquid diet. She was given symptomatic treatment with Zofran and was given laxatives. She was given IV Dilaudid for pain management. Diet was advanced. IV pain medications were transitioned to po. She had low potassium levels and was given potassium replacement. She had anxiety and was given Seroquel. She had good pain control, and was tolerating diet well, passing flatus and BM. She was discharged home. FINAL DIAGNOSES: Status post uterine artery embolization Chronic anxiety with acute exacerbation Hypokalemia Anemia DISPOSITION: Patient was discharged home. DISCHARGE MEDICATIONS: Refer to Discharge Medication List. DISCHARGE INSTRUCTIONS: Follow up in a week. I have been assigned to dictate discharge summary on this account, and I was not involved in the patient's management. Silva Vasquez NP Jun 02, 2018 09:05
== END 2018-06-01 14:00 | disposition home or self-care (01) | DRG 948 ==
LOC: EMR 00:35 → 3E 01:06 → EDBEDREQ 01:11 → 3E 14:08
DX: G89.18 Other acute postprocedural pain (principal); F41.8 Other specified anxiety disorders; E87.6 Hypokalemia; D64.9 Anemia, unspecified; Z88.2 Allergy status to sulfonamides; F17.290 Nicotine dependence, other tobacco product, uncomplicated; K59.03 Drug induced constipation; T40.2X5A Adverse effect of other opioids, initial encounter
CPT/HCPCS: 36415; 74177; 80048; 80053; 81003; 82607; 82728; 82746; 83516; 83540; 83550; 83690; 84439; 84443; 85025; 99285; J2405; J8499